=== PATIENT | female | born 1970 | race Caucasian/White ===

== ENCOUNTER 2018-06-17 16:21 | Emergency (ER) | payer BC ==
[2018-06-17 16:33] VITALS: BP 153/78; PULSE 86; O2SAT 97
--- NOTE | 2018-06-17 16:39 | ERPHSYRPT ---
- History of Present Illness Time Seen by Provider: 06/17/18 16:36 Source: patient Exam Limitations: no limitations Patient Subjective Stated Complaint: had a cyst removed from the top of her head and stitches removed on Monday, hit top of her head on her cabinet and busted the incision open Triage Nursing Assessment: Pt had a cyst removed from the top of her head and stitches removed on Monday, hit top of her head on her cabinet and busted the incision open, denies pain, no other issues at this time Physician History: had a cyst removed from the top of her head and stitches removed on Monday, hit top of her head on her cabinet and busted the incision open Timing/Duration: today Associated Symptoms: denies symptoms Allergies/Adverse Reactions: chlorhexidine Allergy (Verified 06/17/18 16:33) Home Medications: Aspirin EC 81 mg [Ecotrin 81 mg] 81 mg PO DAILY 06/17/18 [History] Estradiol 0.5 mg PO DAILY 06/17/18 [History] Levothyroxine Sodium 100 Mcg [Synthroid 100 Mcg] 175 mcg PO DAILY 06/17/18 [History] Metformin HCl 500 mg [Glucophage 500 MG] 500 mg PO DAILY 06/17/18 [History ] Montelukast Sodium 10 mg PO DAILY 06/17/18 [History] Naproxen Sodium [Aleve] 440 mg PO DAILY 06/17/18 [History] PARoxetine HCl [Paroxetine HCl] 20 mg PO DAILY 06/17/18 [History] Terbinafine HCl 250 mg PO UD 06/17/18 [History] Hx Tetanus, Diphtheria Vaccination/Date Given: Yes - Review of Systems Constitutional: No Symptoms Eyes: No Symptoms Ears, Nose, & Throat: No Symptoms Respiratory: No Symptoms Cardiac: No Symptoms Abdominal/Gastrointestinal: No Symptoms Genitourinary Symptoms: No Symptoms - Past Medical History Pertinent Past Medical History: Yes Endocrine Medical History: Hypothyroidism - Past Surgical History Female Surgical History: Hysterectomy, Dilation & Curettage - Social History Smoking Status: Never smoker Exposure to second hand smoke: No Drug Use: none Patient Lives Alone: No - Female History Hx Now: No - Nursing Vital Signs Nursing Vital Signs: Initial Vital Signs Temperature 97.8 F 06/17/18 16:26 Pulse Rate 86 06/17/18 16:26 Blood Pressure 153/78 06/17/18 16:26 O2 Sat by Pulse Oximetry 97 06/17/18 16:26 Pain Scale Pain Intensity 0 - Physical Exam General Appearance: no apparent distress Skin Exam: other (laceration on top of her head, ) SpO2: 97 Procedures - Laceration/Wound Repair Parietal Wound Location: head Wound Length (cm): 5 Wound's Depth, Shape: superficial Wound Explored: clean Irrigated: Yes Hibiclens Prep: Yes Anesthesia: local Volume Anesthetic (ccs): 3 Wound Repaired With: Peter Number of Sutures: 5 Layer Closure?: No - Course Nursing assessment & vital signs reviewed: Yes Ordered Tests: Medication Summary Discontinued Medications Generic Name Dose Route Start Last Admin Trade Name Milton PRN Reason Stop Dose Admin Lidocaine HCl Confirm 06/17/18 16:44 Xylocaine 1% Hcl 20 Ml Mdv Administered 06/17/18 16:45 Dose 5 ml .ROUTE .STK-MED ONE Lidocaine HCl 5 ml 06/17/18 16:50 Xylocaine 1% Hcl 20 Ml Mdv IJ 06/17/18 16:51 STAT ONE - Progress Progress: improved Counseled pt/family regarding: diagnosis, need for follow-up - Departure Departure Disposition: Home Clinical Impression: Laceration Condition: Stable Critical Care Time: No Referrals: DEYSI MURPHY [Primary Care Provider] - Instructions: Laceration Repair With Peter (DC) Additional Instructions: LACERATION CARE 1. Do not use peroxide, merthiolate, alcohol, or betadine. 2. Keep wound clean and dry. 3. Change dressing if it becomes wet or soiled. 4. If you must work, wear protective covering. 5. You may return to the emergency department or see your family physician for suture removal. 6. See your family physician or return to the emergency department for any of the following signs or symptoms: A. Redness B. Swelling C. Discolored drainage D. Red streaks E. Elevated temperature F. Other signs of infection
[2018-06-17] MEDS ORDERED: XYLOCAINE 1% HCL 20 ML MDV ONE (16:44)
[2018-06-17] MEDS ORDERED: XYLOCAINE 1% HCL 20 ML MDV IJ ONE (16:50)
== END 2018-06-17 17:37 | disposition home or self-care (01) ==
LOC: ED 16:21
DX: S01.01XD Laceration without foreign body of scalp, subsequent encounter (principal); Z98.890 Other specified postprocedural states; W22.09XD Striking against other stationary object, subsequent encounter; Y92.009 Unspecified place in unspecified non-institutional (private) residence as the place of occurrence of the external cause; Z79.899 Other long term (current) drug therapy
CPT/HCPCS: 12002; 99283